=== PATIENT | female | born 2000 | race American Indian/Alaskan Native ===

== ENCOUNTER 2024-02-10 22:15 | Emergency (ER) | payer OTHER, MEDICAID, SELFPAY ==
[2024-02-10 22:26] VITALS: BP 122/79; PULSE 75; RESP 18; TEMP 37.6; O2SAT 99; BMI 21.9
--- NOTE | 2024-02-10 23:17 | ED_ITS ---
HPI - General Adult General Chief complaint: Vaginal Bleeding Stated complaint: painful cramps, vomiting Time Seen by Provider: 02/10/24 22:49 History of Present Illness HPI narrative: This 24-year-old female comes in reporting extra a painful menses. She has severe cramping and heavy bleeding every month. Currently she is not having any of those symptoms. She arrives here with normal vital signs. Her caregiver or mother perhaps who is with her states that she just came in to this area and has not established care anywhere. The patient does not report any lightheadedness or shortness of breath. She is otherwise in good health. She has been taking Tylenol without much relief when these symptoms occur. Related Data Home Medications ?Medication ?Instructions ?Recorded ?Confirmed No Known Home Medications 02/10/24 02/10/24 Allergies Allergy/AdvReac Type Severity Reaction Status Date / Time No Known Drug Allergies Allergy Verified 02/10/24 22:31 Review of Systems Status of ROS: Reports: 10 or more systems reviewed and unremarkable except as noted in History and below Narrative: Constitutional: No fevers, no weight gain or loss. Eyes: No discharge. No vision changes. HENT: No congestion, no sore throat, no ear pain. Cardiovascular: No chest pain, no palpitations. Respiratory: No shortness of breath, no wheezes, no cough. Gastrointestinal: No abdominal pain, no vomiting, no diarrhea. Genitourinary: No dysuria, no hematuria. She reports excessive symptoms when having menses. Musculoskeletal: Normal range of motion. Skin: No rashes, no pruritis. Neurological: No dizziness, weakness, sensory change, speech change. Endo/Heme/Allergies: No bruising or bleeding. No polydipsia. Pysch: no suicidality, no anxiety, no insomnia. All other systems reviewed and are negative. Exam Narrative: Exam Narrative: Constitutional: Well-developed, well-nourished, no acute distress. HEENT: Normocephalic, atraumatic. Neck: Normal range of motion. Nontender. Supple. Heart: Regular. No murmurs. Normal rate. Intact distal pulses. Lungs: Clear to auscultation. No chest discomfort. No wheezes, rhonchi, or rales. Abdomen: Normal bowel sounds. Nontender. No rebound tenderness. Genitalia: Deferred. Back: No midline tenderness. Normal range of motion. Extremities: Normal range of motion. No injury. Skin: Intact. No rash. Warm. No erythema or pallor. Neurologic: No altered sensation. No weakness. Alert and oriented. Psychiatric: No suicidality. No anxiety or depression. No insomnia. Nursing notes and vitals signs are reviewed. Const: Vital Signs, click to edit/add: Vital Signs - 24 hr 02/10/24 22:26 Temperature 99.6 F Pulse Rate [Right Pulse Oximeter] 75 Respiratory Rate 18 Blood Pressure [Ri ght Upper Arm] 122/79 Pulse Oximetry 99 Oxygen Delivery Me thod Room Air Course Vital Signs Vital signs: Initial Vital Signs Temperature 99.6 F 02/10/24 22:26 Temperature Source Temporal Artery Scan 02/10/24 22:26 Pulse Rate 75 02/10/24 22:26 Respiratory Rate 18 02/10/24 22:26 Blood Pressure 122/79 02/10/24 22:26 Blood Pressure Mean 93 02/10/24 22:26 Blood Pressure Position Sitting 02/10/24 22:26 Pulse Oximetry 99 02/10/24 22:26 Oxygen Delivery Method Room Air 02/10/24 22:26 Vital Signs Temperature 99.6 F 02/10/24 22:26 Pulse Rate 75 02/10/24 22:26 Respiratory Rate 18 02/10/24 22:26 Blood Pressure 122/79 02/10/24 22:26 Pulse Oximetry 99 02/10/24 22:26 Oxygen Delivery Method Room Air 02/10/24 22:26 Temperature 99.6 F 02/10/24 22:26 Pulse Rate 75 02/10/24 22:26 Respiratory Rate 18 02/10/24 22:26 Blood Pressure 122/79 02/10/24 22:26 Pulse Oximetry 99 02/10/24 22:26 Oxygen Delivery Method Room Air 02/10/24 22:26 Medical Decision Making MDM Narrative Medical decision making narrative: This patient comes in reporting heavy menses with severe abdominal cramping. She is not having any of these symptoms currently and currently not menstru ating. Her exam is normal currently. I stated to the patient and her caregiver that she would best be served by following up with OBGYN clinic. I did discuss various causes for symptoms like this including endometriosis. The patient has been taking Tylenol but would benefit from taking an NSAID instead when these symptoms occur. She did receive [facility] prescriptions for Toradol and Zofran. Discharge Plan Discharge Clinical Impression: History of painful menstruation Patient Disposition: Home w/ Parent or Adult Condition: Stable Additional Instructions: Take medication as needed and indicated. Follow-up with OBGYN clinic for further evaluation and treatment. Return if worsening. Prescriptions: No Action No Known Home Medications Stand Alone Forms: [employer] Info Instructions
[2024-02-10 23:34] VITALS: BP 118/74; PULSE 79; RESP 18; TEMP 37.6; O2SAT 99
[2024-02-10 23:35] VITALS: BP 118/74; PULSE 79; RESP 18; TEMP 37.6
== END 2024-02-10 23:35 | disposition home or self-care (01) ==
PROVIDERS: Emergency Provider Emergency Medicine Emergency Medical Services
DX: N94.6 Dysmenorrhea, unspecified (principal)
CPT/HCPCS: 99282; 99283; 99284